=== PATIENT | female | born 1935 | race Caucasian/White ===

== ENCOUNTER 2019-03-31 07:50 | Observation (INO) | payer MEDICARE, BC ==
[2019-03-30 13:26] LABS: INTERNATIONAL NORMALIZED RATIO 1.41 (0.93-1.1); PROTHROMBIN TIME 14.6 Seconds (9.6-11.5)
[~2019-03-31] VITALS: Ht 177.8 cm; Wt 62.4 kg
[~2019-03-31 07:50] MED LIST: AMIO200T PO; BUPIVACAINE/PF-EPI 0.5% 1:200K ONE; DILT60TA30 PO; FAMO20TA7 PO; FURO20TA3 PO; LEVO50TA5 PO; METO25TA35 PO; SIMV10TA3 PO; WARF1TAB74 PO; WARFARIN PO
[2019-03-31 08:33] VITALS: BP 175/71
[2019-03-31] MEDS ORDERED: SODIUM CHLORIDE 0.9% 1,000 ML IV SCH (08:40)
[2019-03-31] MEDS ORDERED: SCOPOLAMINE PATCH, 1.5MG PATCH.TD72 TD ONE (09:00)
[2019-03-31] MEDS ORDERED: ONDANSETRON ODT 8 MG PO ONE (09:00)
[2019-03-31] MEDS ORDERED: GABAPENTIN 300 MG CAPSULE PO ONE (09:00)
[2019-03-31] MEDS ORDERED: ACETAMINOPHEN 500 MG TABLET PO ONE (09:00)
[2019-03-31] MEDS ORDERED: MIDAZOLAM 1 MG/ML, 2ML ONE (09:09)
[2019-03-31] MEDS ORDERED: FENTANYL PF 250 MCG/5ML ONE (09:09)
[2019-03-31 09:10] LABS: BASOPHILS # (AUTO) 0.03 x10^3/uL (0-0.1); BASOPHILS % (AUTO) 0 % (0-1); EOSINOPHILS # (AUTO) 0.07 x10^3/uL (0-0.4); EOSINOPHILS % (AUTO) 1 % (1-7); LYMPHOCYTES # (AUTO) 1.03 x10^3/uL (1-3.4); LYMPHOCYTES % (AUTO) 14 % (22-44); MD NO; MEAN CORPUSCULAR HEMOGLOBIN 32.4 pg (27.0-34.8); MEAN CORPUSCULAR VOLUME 95.2 fL (80-100); MEAN PLATELET VOLUME 8.4 fL (7.4-10.4); MONOCYTES # (AUTO) 0.75 x10^3/uL (0.2-0.8); MONOCYTES % (AUTO) 10 % (2-9); NEUTROPHILS # (AUTO) 5.32 x10^3/uL (1.8-6.8); NEUTROPHILS % (AUTO) 74 % (42-75); PLATELET COUNT 244 x10^3/uL (130-400); RED BLOOD COUNT 4.62 x10^6/uL (3.82-5.3); RED CELL DISTRIBUTION WIDTH 15.1 % (9.6-15.2)
[2019-03-31 09:30] LABS: INTERNATIONAL NORMALIZED RATIO 1.41 (0.93-1.1); PROTHROMBIN TIME 14.6 Seconds (9.6-11.5)
[2019-03-31] MEDS ORDERED: ROCURONIUM 10 MG/ML,10ML ONE (09:58)
[2019-03-31] MEDS ORDERED: SUCCINYLCHOLINE 20 MG/ML, 10ML ONE (09:58)
[2019-03-31] MEDS ORDERED: DEXAMETHASONE 4 MG/ML, 1ML ONE (09:58)
[2019-03-31] MEDS ORDERED: PROPOFOL 10 MG/ML, 20ML ONE (09:58)
[2019-03-31] MEDS ORDERED: CEFAZOLIN 1,000 MG ONE (09:58)
[2019-03-31] MEDS ORDERED: ONDANSETRON 2MG/ML, 2ML ONE (09:58)
[2019-03-31] MEDS ORDERED: ONDANSETRON 2MG/ML, 2ML IVPush PRN ×2 (10:30→18:00)
[2019-03-31] MEDS ORDERED: ALBUTEROL SULFATE 2.5 MG/3 ML NPPB PRN (10:30)
[2019-03-31] MEDS ORDERED: METOCLOPRAMIDE 5 MG/ML, 2ML IV PRN (10:30)
[2019-03-31] MEDS ORDERED: HYDROmorphone 1 MG/ML, 1ML INJ IV PRN (10:30)
[2019-03-31] MEDS ORDERED: OXYcodone 5 MG/5 ML ORAL.SOL UDC PO PRN (10:30)
[2019-03-31] MEDS ORDERED: KETOROLAC 30 MG/1 ML IV PRN (10:30)
[2019-03-31] MEDS ORDERED: hydrALAzine 20 MG/ML, 1ML IV PRN (10:30)
[2019-03-31] MEDS ORDERED: PROMETHAZINE 25 MG/ML, 1ML IV PRN (10:30)
[2019-03-31] MEDS ORDERED: LABETALOL 5MG/ML, 20ML IV PRN (10:30)
[2019-03-31] MEDS ORDERED: MEPERIDINE/PF 25MG/0.5ML IVPush PRN (10:30)
[2019-03-31] MEDS ORDERED: KETOROLAC 30 MG/1 ML ONE (11:38)
[2019-03-31] MEDS ORDERED: OXYcodone 5 MG/5 ML ORAL.SOL UDC ONE ×2 (11:38→11:55)
[2019-03-31] MEDS ORDERED: FENTANYL PF 100 MCG/2ML ONE (11:55)
[2019-03-31] MEDS: FENTANYL PF 100 MCG/2ML IV PRN ×3 (12:04→12:25)
[2019-03-31 17:25] VITALS: BP 160/67
[2019-03-31] MEDS ORDERED: MORPHINE SULFATE 4 MG/ML, 1ML IVPush PRN (18:00)
[2019-03-31] MEDS: LACTATED RINGERS 1,000 ML IV SCH (18:13)
[2019-03-31 20:26] VITALS: BP 133/77
[2019-04-01 01:33] VITALS: BP 130/60
[2019-04-01 05:14] VITALS: BP 133/73
[2019-04-01 06:24] VITALS: BP 108/67
[2019-04-01] MEDS ORDERED: HYDR-3240 PO (10:03)
[2019-04-01] MEDS ORDERED: ONDA4TAB7 PO (10:04)
[2019-04-01] MEDS: LACTATED RINGERS 1,000 ML IV SCH (12:25)
[2019-04-01 13:18] VITALS: BP 102/56
[2019-04-01] MEDS: LEVOTHYROXINE 50 MCG TABLET PO SCH (14:46)
[2019-04-01 16:57] VITALS: BP 118/66
[2019-04-01 17:34] LABS: INTERNATIONAL NORMALIZED RATIO 1.62 (0.93-1.1); PROTHROMBIN TIME 16.7 Seconds (9.6-11.5)
[2019-04-01] MEDS ORDERED: WARFARIN 1 MG TABLET PO-COUM SCH (18:00)
[2019-04-01] MEDS: METOPROLOL TARTRATE 25 MG TABLET PO SCH (18:10)
[2019-04-01 19:25] VITALS: BP 109/64
[2019-04-01] MEDS: FAMOTIDINE 20 MG TABLET PO SCH (19:42)
[2019-04-01] MEDS ORDERED: SIMVASTATIN 10 MG TABLET PO SCH (21:00)
[2019-04-02 01:49] VITALS: BP 132/63
[2019-04-02 05:15] LABS: INTERNATIONAL NORMALIZED RATIO 1.68 (0.93-1.1); PROTHROMBIN TIME 17.3 Seconds (9.6-11.5)
[2019-04-02 05:17] LABS: BASOPHILS # (AUTO) 0.09 x10^3/uL (0-0.1); BASOPHILS % (AUTO) 1 % (0-1); EOSINOPHILS # (AUTO) 0.01 x10^3/uL (0-0.4); EOSINOPHILS % (AUTO) 0 % (1-7); LYMPHOCYTES # (AUTO) 1.79 x10^3/uL (1-3.4); LYMPHOCYTES % (AUTO) 11 % (22-44); MD NO; MEAN CORPUSCULAR HEMOGLOBIN 32.4 pg (27.0-34.8); MEAN CORPUSCULAR VOLUME 98.1 fL (80-100); MEAN PLATELET VOLUME 8.7 fL (7.4-10.4); MONOCYTES % (AUTO) 7 % (2-9); NEUTROPHILS # (AUTO) 12.94 x10^3/uL (1.8-6.8); NEUTROPHILS % (AUTO) 81 % (42-75); PLATELET COUNT 271 x10^3/uL (130-400); RED BLOOD COUNT 4.51 x10^6/uL (3.82-5.3); RED CELL DISTRIBUTION WIDTH 15.2 % (9.6-15.2)
[2019-04-02 05:20] LABS: CALCIUM 9.3 mg/dL (8.5-10.1); CHLORIDE 101 mmol/L (98-107)
[2019-04-02] MEDS: METOPROLOL TARTRATE 25 MG TABLET PO SCH (05:21)
[2019-04-02] MEDS: LEVOTHYROXINE 50 MCG TABLET PO SCH (05:21)
[2019-04-02 05:24] LABS: ANION GAP 8 mmol/L (5-15); CREATININE 2.32 mg/dL (0.55-1.02)
[2019-04-02 06:55] VITALS: BP 151/72
[2019-04-02] MEDS: FAMOTIDINE 20 MG TABLET PO SCH (08:15)
[2019-04-02] MEDS: LACTATED RINGERS 1,000 ML IV SCH (08:15)
[2019-04-02 12:42] VITALS: BP 150/81
[2019-04-02 14:45] VITALS: BP 124/69
[2019-04-03] MEDS ORDERED: FAMOTIDINE 20 MG TABLET PO SCH (09:00)
== END 2019-04-02 15:34 | disposition home or self-care (01) ==
LOC: OUT 07:50 → 4NOR 17:30 → OUT 22:35 → 4NOR 22:36 → DCLOUNGE 04-02 15:25
PROVIDERS: ADMIT Surgery; ATTEND Surgery
DX: N63.0 Unspecified lump in unspecified breast (principal)
CPT/HCPCS: 19101; 36415; 80048; 85025; 85610; 85730; 88305; 88307; 88329; 88360; 88361; 93005; 97161; C1729; G0378; J0330; J0690; J1100; J1885; J2250; J2405; J2704; J3010; J7030; Q0162